=== PATIENT | male | born 1935 | race Caucasian/White ===

== ENCOUNTER 2017-07-17 12:00 | Inpatient (IN) | payer MEDICARE, BC ==
--- NOTE | 2017-07-17 13:56 | RAD ---
HISTORY: Loss of balance COMPARISONS: October 20, 2015 TECHNIQUE: Multiple contiguous axial CT scans were obtained of the head without intravenous contrast. FINDINGS: HEMORRHAGE/INFARCT: There is no hemorrhage or acute infarct. MASSES/SHIFT: There is no mass or shift. EXTRA-AXIAL SPACES: There are no extra-axial fluid collections. SULCI AND VENTRICLES: The sulci and ventricles are normal in size and position for the patient's stated age. CEREBRUM: There are no focal parenchymal abnormalities. BRAINSTEM: There are no focal parenchymal abnormalities. CEREBELLUM: There are no focal parenchymal abnormalities. VESSELS: The vessels are grossly normal. PARANASAL SINUSES: The paranasal sinuses are clear. ORBITS: The orbits are unremarkable. BONES AND SOFT TISSUE: No bone or soft tissue abnormalities are noted. OTHER: None IMPRESSION: NO ACUTE INTRACRANIAL PATHOLOGY.
[2017-07-17 14:03] LABS: Albumin 3.8 g/dL (3.2-5.2); BUN/Creatinine Ratio 14.4 (8-20); Calcium 9.2 mg/dL (8.6-10.3); EGFR African American 27.6 (>60); EGFR Non-African American 21.4 (>60); Globulin 3.6 g/dL (2-4); Magnesium 2.2 mg/dL (1.9-2.7); Potassium 4.6 mmol/L (3.5-5.0); Total Bilirubin 0.5 mg/dL (0.2-1.0); Total Protein 7.4 g/dL (6.4-8.9); Troponin I 0.01 ng/mL (<0.04)
--- NOTE | 2017-07-17 14:07 | RAD ---
Indication: Confusion, chest pain. 2 views of the chest demonstrates no mediastinal shift. Heart is of normal size and configuration. Lungs appear clear. IMPRESSION: No active cardiopulmonary disease is noted.
[2017-07-17 14:22] LABS: Hematocrit 33 % (42-52); Hemoglobin 10.7 g/dl (14.0-18.0); Mean Corpuscular HGB Conc 33 g/dl (31-36); Mean Corpuscular Hemoglobin 30 pg (27-31); Mean Corpuscular Volume 92 fL (80-94); Mean Platelet Volume 8 um3 (7.4-10.4); Red Blood Count 3.55 10^6/ul (4.0-5.4); Red Cell Distribution Width 15 % (10.5-15); TSH (Thyroid Stimulating Horm) 0.21 mcIU/mL (0.34-5.60); White Blood Count 6.7 10^3/ul (3.5-10.8)
[2017-07-17 18:09] LABS: Free T4 0.94 ng/dL (0.61-1.12)
[2017-07-17 19:49] LABS: Total T3 0.51 ng/mL (0.87-1.78)
--- NOTE | 2017-07-17 20:26 | ED ---
Francisco J Roth Benjamin, scribed for Zaki Rosario MD on 07/17/17 at 1243 . Dizziness - HPI Summary HPI Summary: 81yo male c/o dizziness for 2 days. Pt states that he felt like falling down. Per daughter, pt has been off balance, leaning towards the left. Pt is s/p total left knee replacement 3 week ago. Per daughter, pt also reported feeling like having a bad kidney. Pt has chronic kidney problems. - History Of Current Complaint Chief Complaint: EDDizziness Stated Complaint: AMS,DIZZY,WEAKNESS Time Seen by Provider: 07/17/17 12:30 Hx Obtained From: Patient, Family/Vinyl Cutter - , daughter Onset/Duration: Still Present Timing: Intermittent Episode Lasting Severity Initially: Mild Severity Currently: Mild Character: Lightheaded, Weak Aggravating Factor(s): Nothing Alleviating Factor(s): Rest Associated Signs And Symptoms: Positive: Negative - Allergies/Home Medications Allergies/Adverse Reactions: Allergies Allergy/AdvReac Type Severity Reaction Status Date / Time Iodine Allergy Severe Anaphylatic Verified 10/02/15 12:05 Shock Home Medications: Home Medications Amlodipine Besylate [Amlodipine Besylate] 10 mg PO DAILY 07/17/17 [History Confirmed 07/17/17] Donepezil Hydrochloride [Donepezil HCl] 10 mg PO DAILY 07/17/17 [History Confirmed 07/17/17] PMH/Surg Hx/FS Hx/Imm Hx Endocrine/Hematology History: Denies: Hx Diabetes, Hx Thyroid Disease Cardiovascular History: Reports: Hx Hypercholesterolemia, Hx Hypertension Denies: Hx Pacemaker/ICD, Hx Peripheral Vascular Disease History: Reports: Hx Kidney Infection, Hx Kidney Stones, Other Problems/ Disorders - CKD stage 3 Musculoskeletal History: Reports: Hx Back Problems - Disk removal Denies: Hx Arthritis Sensory History: Reports: Hx Contacts or Glasses, Hx Hearing Aid - PT Does not wear d/t tinnitus, Hx Hearing Problem Denies: Hx Cataracts, Hx Glaucoma Opthamlomology History: Reports: Hx Contacts or Glasses Denies: Hx Cataracts, Hx Glaucoma Neurological History: Reports: Hx Transient Ischemic Attacks (TIA) - 2011 Denies: Hx Headaches Psychiatric History: Denies: Hx Panic Disorder - Surgical History Surgery Procedure, Year, and Place: Back disk removal, R knee replacement, Cholecystectomy, Hernia repair. Hx Anesthesia Reactions: No Infectious Disease History: No Infectious Disease History: Denies: Traveled Outside the [place] in Last 30 Days - Family History Known Family History: Positive: Cardiac Disease, Diabetes - Social History Occupation: Retired Lives: With Family Alcohol Use: None Substance Use Type: Reports: None Smoking Status (MU): Never Smoked Tobacco Review of Systems Constitutional: Negative Eyes: Negative ENT: Negative Cardiovascular: Negative Respiratory: Negative Gastrointestinal: Negative Genitourinary: Negative Musculoskeletal: Negative Skin: Negative Neurological: Other - dizziness Psychological: Normal All Other Systems Reviewed And Are Negative: Yes Physical Exam Triage Information Reviewed: Yes Vital Signs On Initial Exam: Initial Vitals Temp Pulse Resp BP Pulse Ox 97.1 F 58 17 137/66 99 07/17/17 12:03 07/17/17 12:03 07/17/17 12:03 07/17/17 12:03 07/17/17 12:03 Vital Signs Reviewed: Yes Appearance: Positive: Well-Appearing, No Pain Distress Skin: Positive: Warm, Skin Color Reflects Adequate Perfusion Head/Face: Positive: Normal Head/Face Inspection Eyes: Positive: EOMI ENT: Positive: Normal ENT inspection Neck: Positive: Nontender Respiratory/Lung Sounds: Positive: Clear to Auscultation, Breath Sounds Present Cardiovascular: Positive: RRR. Negative: Murmur Abdomen Description: Positive: Nontender Musculoskeletal: Positive: Strength/ROM Intact Neurological: Positive: Sensory/Motor Intact, Alert, Oriented to Person Place, Time, CN Intact II-III Psychiatric: Positive: Normal - Soy Coma Scale Best Eye Response: 4 - Spontaneous Best Motor Response: 6 - Obeys Commands Best Verbal Response: 5 - Oriented Diagnostics - Vital Signs Vital Signs Temp Pulse Resp BP Pulse Ox 07/17/17 12:03 97.1 F 58 17 137/66 99 - Laboratory Result Diagrams: 07/17/17 13:25 07/17/17 13:25 Lab Statement: Any lab studies that have been ordered have been reviewed, and results considered in the medical decision making process. - Radiology CXR Xray Interpretation: No Acute Changes Radiology Interpretation Completed By: Radiologist - ED Physician reviewed the radiology report and agrees with the finding. - CT CT Brain WO CT Interpretation: No Acute Changes CT Interpretation Completed By: Radiologist - ED Physician reviewed the radiology report and agrees with the finding. - EKG 1347. Cardiac Rate: NL - 56bpm EKG Rhythm: Atrial Fibrillation EKG Interpretation: NO STEMI Re-Evaluation - Re-Evaluation First Eval Re-Evaluation Time: 15:02 Comment: Reviewed pt's lab and imaging results with the pt. Dizzy Course/Dx - Course Course Of Treatment: Reviewed pt's list of medication and allergies. Blood pressure noted. Discussed with Dr. Guerra (Hospitalist) at 1507 hour. - Diagnoses Provider Diagnoses: Dizziness, Weakness Discharge - Discharge Plan Condition: Good Disposition: ADMITTED TO [facility] documentation as recorded by the Francisco J calabrese Benjamin accurately reflects the service I personally performed and the decisions made by me, Zaki Rosario MD.
--- NOTE | 2017-07-17 20:29 | RAD ---
INDICATION: Dizziness. COMPARISON: Comparison is made with a prior carotid duplex ultrasound from May 06, 2012. TECHNIQUE: Multiple grayscale, color and Doppler tracings of the common, internal and external carotid and vertebral arteries were obtained. Stenosis estimations reflect velocity criteria that it been correlated to angiographic stenosis calculations based on the distal internal carotid diameter. RIGHT CAROTID: There is mild homogeneous plaque within the right carotid bulb and proximal internal carotid artery. The peak systolic velocity in the proximal right internal carotid artery is 66 cm/s and the maximum end-diastolic velocity is 20 cm/s. The peak systolic velocity in the distal right common carotid artery is 76 cm/s and the maximum end-diastolic velocity is 17 cm/s. The internal to common carotid artery ratio is 0.9. This would be consistent with a less than 50% stenosis. LEFT CAROTID: There is mild plaque within the left carotid bulb and proximal internal carotid artery. The peak systolic velocity in the proximal left internal carotid artery is 76 cm/s and the maximum end-diastolic velocity is 25 cm/s. The peak systolic velocity in the distal left common carotid artery is 73 cm/s and the maximum end-diastolic velocity is 18 cm/s. The internal to common carotid artery ratio is 1.0. This would be consistent with a less than 50% stenosis. VERTEBRALS: There is antegrade flow in both vertebral arteries. IMPRESSION: THERE IS MILD PLAQUE PRESENT BILATERALLY WITHIN THE PROXIMAL INTERNAL CAROTID ARTERIES. NO HEMODYNAMICALLY SIGNIFICANT STENOSIS IS SEEN. CPT II Codes: 3100F
[2017-07-17] MEDS: Meclizine TAB* 12.5 MG PO SCH (21:42)
--- NOTE | 2017-07-17 21:42 | RAD ---
INDICATION: Dizziness, possible CVA. COMPARISON: Comparison is made with a prior MRI of the brain from February 16, [address] of the brain from July 17, 2017. TECHNIQUE: Sagittal T1, axial T1, T2, susceptibility, FLAIR and diffusion weighted images were obtained. FINDINGS: The ventricles, cisterns and sulci are prominent consistent with diffuse atrophy. There are small focal areas of increased signal intensity on T2-weighted images present within the subcortical and periventricular white matter most consistent with mild chronic small vessel ischemic changes. No other focal abnormality or mass effect is seen. No areas of restricted diffusion are present. There is no evidence for infarct or hemorrhage. There is mild mucosal thickening within the ethmoid air cells. The paranasal sinuses and mastoid air cells otherwise appear clear. There appears to be a nasopharyngeal polyp measuring approximate 1.5 cm in diameter which is unchanged from the prior study. IMPRESSION: 1. NO EVIDENCE FOR ACUTE FINDING. 2. FINDINGS CONSISTENT WITH MILD CHRONIC SMALL VESSEL ISCHEMIC CHANGES. 3. NASOPHARYNGEAL POLYP, UNCHANGED.
[2017-07-17] MEDS: Acetaminophen TAB* 325 MG PO PRN (23:02)
--- NOTE | 2017-07-18 00:47 | HP ---
CC: Vesna Suresh MD* ADMISSION HISTORY AND PHYSICAL: DATE OF ADMISSION: 07/17/17 PRIMARY CARE PROVIDER: Vesna Suresh MD ADMITTING PROVIDER: CAMILLA Hendrix SUPERVISING PHYSICIAN: Terra Douglas MD* (dictated by CAMILLA Hendrix). CHIEF COMPLAINT: Dizziness. HISTORY OF PRESENT ILLNESS: This is an 81-year-old gentleman with chronic kidney disease, mild dementia, history of prior TIA, hypertension, and vertigo, who presented to the emergency department with complaints of dizziness. The patient states that his symptoms have been ongoing for the last couple of weeks and are fairly constant, seem to be reproducible by going from a sitting to standing or lying to sitting position. He has not seen a medical provider with these complaints prior to today. He is unable to provide a great description of what the sensation feels like, but states that he is very unsteady on his feet and finds himself often times knocking into ochoa and correcting himself. He feels a fullness sensation in his head and the room spinning. He denies any chest pain or shortness of breath. He believes his symptoms are worse in the morning. He denies any associated ear pain, cough, shortness of breath, fever, or other URI symptoms recently. When asked if this is similar to his history of vertigo, he says, "I believe so." Of note, the patient underwent total knee arthroplasty out of [place] about 1 month ago. He is unsure of what was utilized for DVT prophylaxis, believes he has finished the medication, and per pharmacy report, it looks like he took full strength aspirin twice daily. He denies any other changes to medication recently. He is not entirely clear on these medications but states he takes one for his memory and one for blood pressure. The patient has not tried any home remedies or [id number] medications for these symptoms. PAST MEDICAL HISTORY: 1. Stage 4 chronic kidney disease. 2. History of TIA. 3. Hypertension. 4. Hyperlipidemia. 5. Vertigo. 6. Mild dementia. PAST SURGICAL HISTORY: 1. Total knee arthroplasty. 2. Cholecystectomy. 3. Hernia repair. MEDICATIONS: Home medications (this is limited due to the patient's history and we will verify with PCP's office in the morning): 1. Amlodipine 10 mg p.o. daily. 2. Donepezil 10 mg p.o. daily. SOCIAL HISTORY: The patient lives at home with his . No history of smoking or regular alcohol consumption. REVIEW OF SYSTEMS: As listed above in the HPI. All other systems have been reviewed and considered negative. PHYSICAL EXAMINATION GENERAL: This is a pleasant elderly gentleman accompanied by his , in no acute distress. VITAL SIGNS: Initial vitals, temperature 97.1 degrees Fahrenheit, pulse is 58 beats per minute, respiratory rate 17 per minute, oxygen saturation 99% on room air, and blood pressure 137/66 mmHg. HEENT: Head is normocephalic, atraumatic. Mucous membranes are pink and moist. RESPIRATORY: Lungs are clear to auscultation without wheezes, crackles, or rhonchi. CARDIOVASCULAR: Heart has a regular rate and rhythm without murmurs, rubs, or gallops. ABDOMEN: Abdomen is soft and nontender to palpation. PSYCH: The patient is alert, appropriately oriented. NEURO: Cranial nerves II through XII appear to be intact, although he does perhaps have a mild right facial droop. His smile is asymmetric but the rest of his face appears to be intact and his is unable to state whether that is really new or different for him. He has a negative Romberg. His dizziness is reproduced with changes in position. His gait is somewhat antalgic and he is complaining of back pain, but does not appear to be terribly unsteady. SKIN: Limited exam shows no concerning rashes or lesions. LABORATORY EVALUATION: CBC shows a white blood cell count of 6700, hemoglobin of 10.7 g/dL with a normal MCV, and a platelet count of 259,000. Coags are normal with an INR of 0.92 and PTT of 33.2. D-dimer is pending at this time. Comprehensive metabolic panel shows no new findings. Sodium of 137 mmol/L, potassium 4.6, serum bicarb of 24, BUN of 41, and creatinine of 2.84, which appears to be near his baseline. Normal lactic acid at 1.0. Transaminases and total bilirubin within normal limits. Troponin is negative at 0.01. TSH slightly depressed at 0.2 with free T4, total T3 pending. IMAGIN. Chest x-ray shows no acute process. 2. CT of the brain shows no acute process. 3. EKG is difficult to see good P waves, but they do seem to be apparent and regular, so this likely a sinus rhythm without any ischemic changes. 4. Echo from September 2015 shows moderate LVH without significant valvular disease and a normal left ventricular ejection fraction. 5. MRI of the head and neck from 2013 is available for review and does not show any significant stenosis or aneurysmal changes at that time. ASSESSMENT AND PLAN: This is an 81-year-old gentleman with chronic kidney disease, history of prior transient ischemic attack, hypertension, hyperlipidemia, history of vertigo, and mild dementia who presents with complaints of dizziness and gait instability. 1. Dizziness - the patient's symptoms are nonspecific but seem to be orthostatic in nature. We will plan to obtain orthostatic vital signs. No acute findings on neurologic exam or initial imaging or labs. His renal function appears to be near baseline. He does state that his symptoms are similar to prior vertigo, but again found to be more orthostatic in nature. We will trial some use of meclizine. We will also consider PE, although he is not hypoxic or complaining of chest pain. He does have some back pain. We will order a D-dimer, and if positive, pursue a V/Q scan. His renal function precludes the use of the CT angiogram. An MRI of his brain has been ordered and pending again. CT angiogram of his head and neck will be avoided due to his renal function. He does have angiogram from 2013 of both his head and neck , which did not show any significant stenosis at that time, so it seems unlikely that he would have developed a critical stenosis over the last 3 years. He does have an echo from almost 2 years ago that was benign, but that will be repeated, most likely to look for significant changes in wall motion or valvular disease that would explain his new onset. Neurologist, Dr. Dai, has been asked to consult in this case. Could also consider Aricept is contributing to his symptoms as he states this is a relatively new medication, but the workup as described above should be completed before assuming this is the cause. 2. Stage 4 chronic kidney disease. Appears to be near baseline. We will avoid nephrotoxic agents. 3. Hypertension - the patient is moderately hypotensive. We will check orthostatic vital signs, but otherwise continue amlodipine at this time. 4. Hyperlipidemia. This is listed in his medical history but the patient does not report any statin use. We will plan to check a fasting lipid panel in the morning. 5. Mild dementia. He is well oriented and his states there has been some improvement in his mental status since initiating Aricept and this would be continued as well. 6. Code status: The patient is full code. 7. DVT prophylaxis: The patient will be started on subcu Lovenox. 8. Healthcare proxy is listed as his . 9. Disposition: The patient is being admitted to observation status with anticipated length of stay to be less than 2 midnights. CAMILLA HENDRIX [id number]/CPS #: [id number] PHILLIP
[2017-07-18] MEDS: Acetaminophen TAB* 325 MG PO PRN ×3 (03:44→19:29)
[2017-07-18 05:42] LABS: HDL Cholesterol 33.4 mg/dL
[2017-07-18] MEDS: Meclizine TAB* 12.5 MG PO SCH ×3 (06:32→21:15)
[2017-07-18] MEDS: amLODIPine TAB* 5 MG PO SCH (08:45)
[2017-07-18] MEDS ORDERED: Donepezil TAB* 5 MG PO SCH (09:00)
--- NOTE | 2017-07-18 10:34 | RAD ---
HISTORY: Dizziness, weakness, chest pain COMPARISON: Chest x-ray dated July 17, 2017 TECHNIQUE: Pulmonary ventilation/perfusion scintigraphy was performed with dynamic cine images and multiple planar images. DOSE: Ventilation: Xenon-133 12.95 millicuries, administered at 9:50 AM on July 18, 2017 Perfusion: Technetium 99m microaggregated albumin 6.5 millicuries, administered at 9:50 AM on July 18, 2017 FINDINGS: Ventilation: There is homogeneous ventilation Perfusion: There is nonsegmental small unmatched defect of the left posterior lung IMPRESSION: LOW PROBABILITY VQ SCAN
--- NOTE | 2017-07-18 11:01 | ECHO ---
Patient: HUBERT NULL [facility] Rec#: [id number] : 1935 Date: 07/18/2017 Age: 81y Height: 178 cm / 70.1 in Weight: 64.9 kg / 143.0 lbs Sex: M BSA: 1.8 Room#: [facility] Admit Date#: 07/17/2017 Type: Inpatient Referring: Clemente Benson Reading: Elijah Salas MD Lumber Stacker Driver: Jo Del Cid RN RDCS CC: Vesna Suresh Transthoracic Echocardiogram Indication: Dizziness BP: 135/62 HR: 45 Rhythm: Bradycardia Findings History: HTN, HLD, TIA, CKD, mild dementia, total left knee arthroplasty 1 month ago Technical Comments: The study quality is fair. Completed at 1010. Left Ventricle: The left ventricular chamber size is normal. Mild to moderate concentric left ventricular hypertrophy is observed. Global left ventricular wall motion and contractility are within normal limits. There is normal left ventricular systolic function.LVEF is visually estimated at 55 %. Abnormal left ventricular diastolic filling is observed, consistent with impaired relaxation. Left Atrium: The left atrium is slightly dilated. Right Ventricle: The right ventricular cavity size is normal. The right ventricular global systolic function is normal. Right Atrium: The right atrial cavity size is normal. There is evidence of an atrial septal aneurysm. Aortic Valve: The aortic valve is trileaflet. The aortic valve leaflets are mildly thickened. There is aortic annular calcification. There is trace to mild aortic regurgitation. There is no evidence of aortic stenosis. Mitral Valve: The mitral valve leaflets are mildly thickened. There is a trace of mitral regurgitation. There is no evidence of mitral stenosis. Tricuspid Valve: The tricuspid valve leaflets are normal. There is trace tricuspid regurgitation. Unable to estimate the right ventricular systolic pressure. Pulmonic Valve: The pulmonic valve appears normal. There is mild to moderate pulmonic regurgitation. There is no pulmonic stenosis. Pericardium: There is no significant pericardial effusion. Aorta: There is mild dilatation of the ascending aorta. There is no dilatation of the aortic arch. There is mild dilatation of the aortic root. Pulmonary Artery: The main pulmonary artery is not well visualized. Venous: The inferior vena cava appears normal in size. There is an approximate 50% respiratory change in the inferior vena cava dimension. Conclusions Mild to moderate concentric left ventricular hypertrophy is observed. Global left ventricular wall motion and contractility are within normal limits. Mild to moderate concentric left ventricular hypertrophy is observed. Global left ventricular wall motion and contractility are within normal limits. There is normal left ventricular systolic function.LVEF is visually estimated at 55 %. Abnormal left ventricular diastolic filling is observed, consistent with impaired relaxation. No significant valvular disease: There is trace to mild aortic regurgitation. There is a trace of mitral regurgitation. There is trace tricuspid regurgitation. No significant change compared to report of study from 10/21/2015 There is mild dilatation of the ascending aorta. Measurements Name Value Normal Range RVIDd (AP) 2D 2.9 cm (0.9 - 2.6) RVDdMajor (2D) 3.3 cm (2.2 - 4.4) RAd ISD 4CH 4.1 cm (3.4 - 4.9) RA (A4C)W 3.6 cm (2.9 - 4.6) IVSd (2D) 1.5 cm (0.6 - 1) LVPWd (2D) 1.4 cm (0.6 - 1) LVIDd (2D) 4.2 cm (3.6 - 5.4) LVIDs (2D) 2.4 cm - LV FS (2D) 43 % (25 - 45) Aortic Annulus 2.3 cm (1.4 - 2.6) Ao root diameter (2D) 3.7 cm (2.1 - 3.5) Ascending Ao 3.7 cm (2.1 - 3.4) LA dimension (AP) 2D 3.3 cm (2.3 - 3.8) LAd ISD 4CH 4 cm (2.9 - 5.3) LA ISD 4CH W 3.5 cm (2.5 - 4.5) Name Value Normal Range LA ESV SP 4CH (A/L) 35 ml - LA ESV SP 2CH (A/L) 48 ml - LA ESV BP (A/L) 41 ml - LA ESV BP (A/L) index 22.8 ml/m2 - LA ESV SP 4CH (MOD) 33 ml - LA ESV SP 2CH (MOD) 46 ml - Name Value Normal Range MV E-wave Vmax 0.44 m/sec - MV deceleration time 476 msec - MV A-wave Vmax 0.88 m/sec - MV E:A ratio 0.5 ratio - LV septal e' Vmax 0.04 m/sec - LV lateral e' Vmax 0.07 m/sec - LV E:e' septal ratio 11 ratio - LV E:e' lateral ratio 6.3 ratio - Name Value Normal Range AV Vmax 0.9 m/sec - AV VTI 22.5 cm - AV peak gradient 3.3 mmHg - AV mean gradient 2.2 mmHg - LVOT Vmax 0.67 m/sec - LVOT VTI 15.9 cm - LVOT peak gradient 1.8 mmHg - LVOT mean gradient 1.1 mmHg - DENISE Vmax 0.53 m/sec - Name Value Normal Range IVC diameter 1.8 cm - Name Value Normal Range PV Vmax 0.78 m/sec -
[2017-07-18 14:33] LABS: Urine Bacteria Absent (Absent); Urine Bilirubin Negative (Negative); Urine Glucose Negative (Negative); Urine Nitrite Negative (Negative)
[2017-07-18] MEDS: Aspirin TAB* 325 MG PO SCH (16:15)
[2017-07-18 17:13] LABS: C Reactive Protein 8.46 mg/L (< 5.00)
--- NOTE | 2017-07-18 17:30 | PN ---
Subjective Date of Service: 07/18/17 Interval History: Mr. Last initially stated he was feeling much better when I saw him this morning. He confirmed that he had dizziness consistent with his history of vertigo earlier but that it had resolved. He was tolerating oral intake well. However, later that afternoon he reported feeling weak and exhausted. Neurology noted that he was very unsteady on his feet. Mr. Last confirms that he has lost about 40 lbs over the past couple of months. He has been under a lot of stress related to caring for his who was cancer and feels that he is not taking care of himself. He confirms that he often misses meals. He has a recent excision of suspicious nevi on his face and on his chest by dermatology team outpatient. 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 Objective Active Medications: Acetaminophen (Tylenol Tab*) 650 mg PO Q6H PRN Amlodipine Besylate (Norvasc Tab*) 10 mg PO DAILY [facility] Aspirin (Aspirin Tab*) 325 mg PO DAILY [facility] Meclizine HCl (Antivert Tab*) 25 mg PO Q8HR [facility] Vital Signs Vital Signs: Temp Pulse Resp BP Pulse Ox 97.9 F 64 16 111/50 100 07/18/17 16:01 07/18/17 16:01 07/18/17 16:01 07/18/17 16:01 07/18/17 16:01 Oxygen Devices in Use Now: None Appearance: Male sitting up in bed in NAD Eyes: No Scleral Icterus Ears/Nose/Mouth/Throat: Mucous Membranes Moist Neck: Trachea Midline Respiratory: Symmetrical Chest Expansion and Respiratory Effort, Clear to Auscultation Cardiovascular: NL Sounds; No Murmurs; No JVD, No Edema Abdominal: NL Sounds; No Tenderness; No Distention Extremities: No Edema Skin: - - 1 cm incision to right check with stitch Neurological: Alert and Oriented x 3, NL Muscle Strength and Tone Nutrition: Taking PO's Result Diagrams: 07/17/17 13:25 07/17/17 13:25 Assess/Plan/Problems-Billing Assessment: Mr. Last is an 81 yo male with a PMH of TIA, HTN, HLD, and CKD Stage IV who was admitted on 07/17/17 with concern for dizziness and not feeling well now describing recent 40lb weight loss with new skin biopsy showing malignant melanoma in situ. - Patient Problems (1) Dizziness Comment: - Resolved. ? if BPPV (patient confirms history of vertigo). ? if related to underlying process such as cancer given his weight loss and new diagnosis of malignant melanoma. Patient also describes feeling unsteady on his feet and this gait abnormality is confirmed by Dr. Dimas today as well. - MRI brain negative. Echo without significant wall motion or valvular abnormalities. No evidence of infection. V/Q scan negative. No evidence of infection or autoimmune process with essentially normal CRP - Appreciate neurology consult, Dr. Dimas questions if his constellation of symptoms could be related to donepezil (discontinued) or myeloma (SPEP, UPEP ordered) (2) Malignant melanoma Comment: - Skin biopsy outpatient, patient unaware of pathology results. Explained to him today. - Plan for oncology consult in AM. - Could explain patient's significant weight loss, though biopsy is described to be in situ. (3) CKD (chronic kidney disease) Comment: - Stage 4. - Creatinine rising slowly since 2012. - Avoid nephrotoxins, keep well hydrated, control hypertension. (4) HTN (hypertension) Comment: - BP well controlled, continue amlodipine. (5) DVT prophylaxis Comment: - SQ heparin. (6) Full code status Status and Disposition: Convert from OBV to inpatient given need for additional night in the hospital for further workup. Anticipate discharge to home when medically stable.
--- NOTE | 2017-07-18 18:29 | CONS ---
NEUROLOGY CONSULTATION: DATE OF CONSULT: 07/18/17 LOCATION: Inpatient, Room 445. REFERRING PROVIDER: CAMILLA Cuevas. PRIMARY CARE PROVIDER: Vesna Suresh MD. CHIEF COMPLAINT: Dizziness. HISTORY OF PRESENT ILLNESS: Tyree Last is an 81-year-old man who was admitted yesterday with dizziness. He carries a diagnosis of mild dementia and is not a very good historian, but says for a few days he has been feeling dizzy. He feels unsteady on his feet. If he sits down, he feels better. He does not feel dizzy when he is lying down. He does report a sense of possible impending loss of consciousness and some nausea, but no sweats. He has not fallen, but he has to hold on to ochoa at times. He has a history of vertigo in the past and he feels somewhat like that. He has had orthostatic vitals checked since he has been here and those have been unremarkable. He had an MRI of his brain, which reveals chronic ischemic changes, but is otherwise unremarkable as well. He has not noticed any double vision, change in vision, or numbness or weakness of his extremities. He does not have any headache. Of note, he says he has lost over 20 pounds in the last few weeks for unclear causes. He does not have any diarrhea or abdominal pain and he has not had any vomiting. PAST MEDICAL HISTORY: Notable for: 1. Stage 4 chronic renal disease. 2. Hypertension. 3. Hyperlipidemia. 4. Dementia. 5. Recent knee arthroplasty. 6. Prior knee replacement. 7. Cholecystectomy. MEDICATIONS AT HOME: Consist of: 1. Amlodipine 10 mg p.o. daily. 2. Donepezil 10 mg p.o. daily. REVIEW OF SYSTEMS: Notable for left paralumbar pain radiating into the left buttock. He does not have any numbness or pain in his feet. No shortness of breath or chest pain. Weight loss as noted above. He has not noticed any fevers, sweats, or chills. No history of head trauma or seizures. PHYSICAL EXAM: He is a thin elderly gentleman, looks well hydrated. Most recent temperature 98.2, blood pressure 125/65, heart rate is about 60 and seems regular. Heart is in a regular rate and rhythm without murmurs. Carotid pulses are symmetrical and there are no cervical bruits. He has a small right surgical incision near his right maxilla with a couple of stitches in it from a recent skin biopsy. Head is otherwise atraumatic. Neck is supple. There is tenderness to palpation in the left paralumbar region, but no masses are felt. Neurological Exam: Pupils are small at about 2.5 mm, reacting to light to 2 mm. Funduscopic exam reveals sharp discs bilaterally and arterial tortuosity and silver wiring. No hemorrhages noted. Eye movements are normal. There is no ptosis. Visual zayas are full to confrontation. There is mild weakness of right lower facial musculature. Facial sensation is intact to light touch. Palate and tongue appear normal and speech is clear. He is hard of hearing bilaterally. Neck strength is intact. Motor exam reveals no rigidity or spasticity. He has good strength proximally and distally in upper and lower extremities, although there is pain with touching about the left knee, so that was not forced. Sensory exam is notable for absent vibratory sense in the feet, but intact proprioception and light touch in the limbs. There is mild myoclonus in the outstretched hands. There is no action tremor or dysmetria on [id number] maneuver. He is not able to do a [id number]-mt-[id number] maneuver because of the knee problems. Gait is wide-based and unsteady. He is alert and oriented, but has a poor recent memory. Language is generally fluent. DIAGNOSTIC STUDIES/LAB DATA: Includes a CAT scan of the brain, which I reviewed and is interpreted as normal. MRI of the brain likewise reviewed and reveals subcortical high signal and flare in T2 consistent with chronic ischemic changes. There is also an area of darkness on the susceptibility images suggestive of hemosiderin deposition. It is not commented by the radiologist, however. Other laboratory studies notable for hemoglobin of 10.7, which is a decrease from his last hemoglobin in September 2016 of 12.7. CBC is otherwise unremarkable. Chemistries notable for a creatinine of 2.84 with a BUN of 41, this is the highest creatinine he has had and the last one in the record is 2.74 on 10/14/16. TSH is low at 0.21 and total T3 is also low at 0.51. IMPRESSION AND PLAN: Mr. Last presents with fairly nonspecific dizziness. His symptoms sound more like a lightheadedness than actual vertigo. There is no evidence of acute cerebrovascular event. He has lost a lot of weight and I am not sure how to interpret his thyroid function abnormalities with both the low T3 and a low TSH. I am also concerned about his anemia and renal dysfunction and weight loss in terms of possibility of myeloma. I would recommend additional laboratory studies to include a sedimentation rate , CRP, urine and serum electrophoresis, also anti-thyroid antibodies. I would also recommend stopping donepezil as it can cause heart block as well as anorexia and other intestinal symptoms. It may be causing anorexia with weight loss, but again I think additional labs need to be done. I should also note his EKG does not clearly show P-waves and I think that is another reason to at least hold the donepezil for now. I discussed my concerns with Clemente Benson. [id number]/[facility] #: [id number] PHILLIP
[2017-07-18] MEDS: Heparin VIAL(*) 5000 UNITS/ML VIAL (FIVE THOUSAND) SUBCUT SCH (21:15)
[2017-07-19] MEDS: Meclizine TAB* 12.5 MG PO SCH ×3 (05:29→22:20)
[2017-07-19] MEDS: Heparin VIAL(*) 5000 UNITS/ML VIAL (FIVE THOUSAND) SUBCUT SCH ×3 (05:29→22:20)
[2017-07-19] MEDS: Acetaminophen TAB* 325 MG PO PRN (06:49)
[2017-07-19] MEDS: Aspirin TAB* 325 MG PO SCH (07:47)
[2017-07-19] MEDS: amLODIPine TAB* 5 MG PO SCH (07:47)
[2017-07-19 09:00] LABS: Ferritin 222.3 ng/mL (24-336)
[2017-07-19] MEDS ORDERED: Influenza VAC *QUAD* 2017-18* 0.5 ML SYRINGE IM ONE (09:00)
[2017-07-19 09:04] LABS: Folate 2.8 ng/mL (>3.99)
[2017-07-19] MEDS ORDERED: amLODIPine TAB* 5 MG PO SCH (12:16)
[2017-07-19] MEDS ORDERED: oxyCODONE TAB* 5 MG TAB PO PRN (12:16)
[2017-07-19 13:08] LABS: Prolactin 5.6 ng/mL (1.0-20.0)
--- NOTE | 2017-07-19 14:22 | RAD ---
INDICATION: Weight loss, loss of appetite, pain left lower rib. COMPARISON: Comparison is made with a prior CT of the abdomen and pelvis from October 06, 2011. TECHNIQUE: A CT scan of the chest, abdomen and pelvis was performed without intravenous or oral contrast. Contiguous axial sections were obtained from the lung apices through the symphysis pubis. Images were reconstructed in the coronal and sagittal planes. FINDINGS: The lungs are clear. No pleural effusion is seen. No significant enlarged mediastinal or hilar lymph nodes are seen. The heart is within normal limits in size. No pericardial effusion is present. There are coronary artery calcifications present. The thoracic aorta is normal in caliber. There is mild calcific plaque present. The liver and spleen are normal in size without significant focal abnormality on this noncontrast study. The patient is status post cholecystectomy. The pancreas appears within normal limits in size. No ductal distention is seen. The adrenal glands appear to be within normal limits. The kidneys appear small in size with multiple hypodense lesions most consistent with cysts on this noncontrast study. No renal calculi are seen. No hydronephrosis is noted. The aorta is normal in caliber and there is moderate calcific plaque present. No significant enlarged retroperitoneal lymph nodes are seen. The stomach, small and large bowel appear nondistended. There is moderate descending and sigmoid diverticulosis. There is no evidence for diverticulitis or colitis. There is a small periumbilical hernia containing fat. No free intraperitoneal air or fluid is seen. No significant focal osseous abnormality is seen. IMPRESSION: 1. NO EVIDENCE FOR ACUTE FINDING. 2. NO EVIDENCE FOR METASTATIC DISEASE.
--- NOTE | 2017-07-19 18:08 | PN ---
Subjective Date of Service: 07/19/17 Interval History: No more dizzy spells. No c/o. Objective Active Medications: Amlodipine Besylate (Norvasc Tab*) 5 mg PO DAILY [facility] Aspirin (Aspirin Tab*) 325 mg PO DAILY [facility] Last Admin: 07/19/17 07:47 Dose: 325 mg Heparin Sodium (Porcine) (Heparin Vial(*)) 5,000 units SUBCUT Q8HR [facility] Last Admin: 07/19/17 13:12 Dose: 5,000 units Meclizine HCl (Antivert Tab*) 25 mg PO Q8HR [facility] Last Admin: 07/19/17 13:12 Dose: 25 mg Oxycodone HCl (Roxycodone Tab*) 5 mg PO Q4H PRN PRN Reason: PAIN Last Admin: 07/19/17 12:44 Dose: 5 mg Vital Signs 07/18/17 07/18/17 07/19/17 19:51 20:00 00:19 Temperature 98.3 F 98.2 F Pulse Rate 57 56 Respiratory 16 18 16 Rate Blood Pressure 120/62 132/59 (mmHg) O2 Sat by Pulse 99 97 Oximetry 07/19/17 07/19/17 07/19/17 04:10 06:35 07:14 Temperature 97.5 F 97.9 F Pulse Rate 51 67 Respiratory 16 18 16 Rate Blood Pressure 153/71 121/60 (mmHg) O2 Sat by Pulse 100 99 Oximetry 07/19/17 07/19/17 07/19/17 11:20 12:44 14:44 Temperature 98.4 F Pulse Rate 62 Respiratory 18 20 16 Rate Blood Pressure 123/61 (mmHg) O2 Sat by Pulse 99 Oximetry 07/19/17 15:24 Temperature 97.6 F Pulse Rate 72 Respiratory 16 Rate Blood Pressure 133/72 (mmHg) O2 Sat by Pulse 100 Oximetry Oxygen Devices in Use Now: None Appearance: Alert, sitting up in bed. In good spirits. Looks comfortable. Eyes: No Scleral Icterus Extremities: No Edema, No Clubbing, Cyanosis, - Skin: No Rash or Ulcers, No Nodules or Sclerosis, - Neurological: Alert and Oriented x 3, NL Sensation Result Diagrams: 07/17/17 13:25 07/17/17 13:25 Microbiology and Other Data: Microbiology 07/19/17 10:06 Stool Occult Blood ([facility]MAN) - Final Stool Assess/Plan/Problems-Billing Assessment: Mr. Last is an 81 yo male with a PMH of TIA, HTN, HLD, and CKD Stage IV who was admitted on 07/17/17 with concern for dizziness and not feeling well now describing recent 40lb weight loss with new skin biopsy showing malignant melanoma in situ. - Patient Problems (1) Malignant melanoma Current Visit: Yes Status: Acute Code(s): C43.9 - MALIGNANT MELANOMA OF SKIN , UNSPECIFIED SNOMED Code(s): 052342053 Comment: in situ. I will discuss with the oncologist. (2) CKD (chronic kidney disease) stage 3, GFR 30-59 ml/min Current Visit: No Status: Acute Code(s): N18.3 - CHRONIC KIDNEY DISEASE, STAGE 3 (MODERATE) SNOMED Code(s): 485234927 Comment: ? slowly progressive. BMP 07/20. (3) HTN (hypertension) Current Visit: No Status: Acute Code(s): I10 - ESSENTIAL (PRIMARY) HYPERTENSION SNOMED Code(s): 95720687 Comment: - BP well controlled, continue amlodipine. Status and Disposition: Convert from OBV to inpatient given need for additional night in the hospital for further workup. Anticipate discharge to home when medically stable.
--- NOTE | 2017-07-20 00:42 | CONS ---
MEDICAL ONCOLOGY/HEMATOLOGY CONSULTATION NOTE: DATE OF CONSULT: 07/19/17 REASON FOR CONSULT: Anemia, weight loss, and recent diagnosis of melanoma in situ. HISTORY OF PRESENT ILLNESS: Mr. Last is an 81-year-old male who is known to our office as his is a longstanding patient here. He has a longstanding history of chronic kidney disease for which he follows with Dr. Malave. Also, longstanding history of anemia. He presented to the hospital at this time with episodes of dizziness and lightheadedness, which has been going on for a period of several days to may be a week. It worsens with change in position. At times, he describes this as being vertigo and at times denies of being vertiginous. He was seen in consultation on 07/[address] Dai of Neurology. It was felt at that time this was more lightheadedness than true vertigo. There was no evidence for an acute cerebrovascular event. Imaging of the brain includes a brain MRI on 07/17/17 that was done without contrast given his renal failure. There was no evidence for any acute findings. There was some mild chronic small vessel ischemic changes noted. Laboratory studies are significant as follows: H and H of 33 and 10.7. Hemoglobin has been low since at least 2013, running in the 12 to 13 range in 2013 and 2014 then being 10.9 in July 2015, 12.28 September 2016, and 10.7 now. It should be noted that the patient did undergo a total knee replacement 5 weeks ago. Associated with this is a normal white count, normal platelet count, and normal MCV along with potentially normal differential. There were no significant abnormalities noted on his peripheral smear. Other laboratory studies of note include sed rate of 30, CRP of 8.46. Iron saturation is 15%. Normal LFTs. B12 level is 328. Folic acid 2.80. Thyroid function includes TSH of 0.21 with a free T4 of 0.94 and a total T3 of 0.51. Slightly confusing given low TSH and also low T3. Renal function has been abnormal for multiple years with a creatinine of 2 to [address] all the way back to 2011 creatinine recently to 2.84 versus his baseline over the past couple of years of approximately 2.5. The patient reports approximately 40-pound weight loss and that he initially said was a one month period, which was clarified by his and his daughter to be 485 pounds down to 140 pounds over the past 4 to 5 months. Associated with this, he but he does not have nausea, vomiting, or any early satiety. He does complain of pain in his lower back, which he rates as a 5-6/10, especially when he lies on the left side, occurring in the past 2 to 3 weeks, which is helped somewhat but not completely by Tylenol. PAST MEDICAL HISTORY: Ongoing anemia, mild dementia, hyperlipidemia, hypertension, history of TIA, chronic kidney disease, episode of vertigo approximately 2 years ago, status post total knee replacement, status post cholecystectomy, status post inguinal hernia repair. MEDICATIONS: At home include amlodipine and donepezil 10 mg daily each. SOCIAL HISTORY: The patient lives with his . Denies any significant alcohol or tobacco. He is a retired nurse, having retired in 1994. REVIEW OF SYSTEMS: As discussed above. No shortness of breath or chest pain. No palpitations. No recent fevers, sweats, chills, cough, sore throat, or other signs of infection. No significant change in bowel or bladder habits. Review of systems is otherwise negative except as discussed in the above history of present illness. PHYSICAL EXAM: Elderly male, who appears his stated age, in no acute distress, quite thin. Vital Signs: Blood pressure 123/61, pulse 62, afebrile. Orthostatic signs obtained just prior to this visit revealed a significant increase in his pulse rate from 62 to 86 on standing without significant drop in blood pressure going from 123/61 to 110/69. HEENT: PERRL, EOMI. No erythema or exudate. No palpable cervical, supraclavicular, or axillary adenopathy. Lungs: Clear. Heart: Regular rate and rhythm without murmurs, rubs or gallops. Abdomen: Somewhat scaphoid without masses, organomegaly, or tenderness. Normoactive bowel sounds. Back: No CVA or spinal tenderness. He is tender over right lower lateral rib and less so over the accompanying upper right pelvis. Extremities: No clubbing, cyanosis, or edema. Neurologic Exam: Negative Romberg. Motor is reasonably intact. No significant cranial nerve findings. Right cheek with several sutures to be in place, has had a recent melanoma in situ resection. IMPRESSION: An 81-year-old male with following four issues, recently excised melanoma in situ, chronic anemia with chronic renal failure, weight loss, dizziness. 1. In regards to melanoma in situ, he will require television production assistant local excision given the fact that the margins were quite close and he actually has 1+ margin. Given this melanoma in situ, no further therapy is necessary unless invasive melanoma is found on the re-excision. 2. Chronic anemia. This most likely relates to his underlying renal insufficiency. His anemia is slightly worse recently, which is also likely related to his total knee replacement 4 to 5 weeks ago. Given the fact that he is having symptoms of severe weight loss, further workup is to ensue. This will include a CT scan of the chest, abdomen, and pelvis to look for any occult malignancy. Serum protein electrophoresis with light chain and beta-2 microglobulin to look for potential multiple myeloma. If this workup is negative, I do not believe at the present time that there is a role for a bone marrow biopsy. 3. Weight loss. There is no obvious etiology for this at the present time, certainly a CT scan as discussed above will be appropriate given severity of the weight loss in such a short period of time. 4. Dizziness. He has already had an essentially negative MRI of the brain. He has had ongoing neurology consultation. [id number]/[facility] #: [id number] PHILLIP
[2017-07-20 05:08] LABS: BUN/Creatinine Ratio 15.9 (8-20); Calcium 8.5 mg/dL (8.6-10.3); EGFR African American 26.9 (>60); EGFR Non-African American 20.9 (>60); Potassium 4.2 mmol/L (3.5-5.0)
[2017-07-20] MEDS: Meclizine TAB* 12.5 MG PO SCH ×2 (06:27→13:34)
[2017-07-20] MEDS: Heparin VIAL(*) 5000 UNITS/ML VIAL (FIVE THOUSAND) SUBCUT SCH ×2 (06:27→13:34)
[2017-07-20 08:22] VITALS: BP 127/61
[2017-07-20] MEDS: Aspirin TAB* 325 MG PO SCH (08:26)
--- NOTE | 2017-07-20 12:25 | PN ---
Progress Note - Progress Note Date of Service: 07/20/17 Note: Time spent on discharge 45 minutes.
[2017-07-20 13:39] LABS: Thyroglobulin Antibody <1.8 IU/mL (<4.0)
[2017-07-20 16:52] LABS: Albumin 55 %; Gamma Globulin 15 %
--- NOTE | 2017-07-20 23:41 | DS ---
CC: Dr. Vesna Suresh; Dr. Kaur* DISCHARGE SUMMARY: DATE OF ADMISSION: 07/18/17 DATE OF DISCHARGE: 07/20/17 HOSPITAL COURSE: This 81-year-old man presented with dizziness. He stated that he had had this problem for about 2 weeks and generally seemed to be when he stood up. I note he had one total knee arthroplasty about a month before at [facility]. The rest of the history is detailed in the admission note. The patient was seen in consultation by Dr. Dai. Dr. Dai recommended antithyroid antibody, sedimentation rate, CRP, serum electrophoresis. He felt that the patient's symptoms were rather nonspecific and seemed to be more lightheadedness than vertigo and therefore not of neurologic etiology. The patient was seen in consultation by Dr. Kaur because of his melanoma in situ, anemia, and weight loss. The patient had a CT scan of the abdomen and pelvis, which did not show any evidence of malignancy. Test for serum protein electrophoresis with light chain and beta-2 microglobulin were sent out and are pending. I reduced his amlodipine dose from 10 mg to 5 mg. I think his symptoms improved in the hospital possibly due to the medication change. DISCHARGE DIAGNOSES: 1. Melanoma in situ. 2. Chronic kidney disease. 3. Hypertension. 4. Dizziness. DISCHARGE MEDICATIONS: 1. Amlodipine 5 mg daily. 2. Aspirin 81 mg daily. [id number]/[facility] #: [id number] MTDD
[2017-07-21 10:57] LABS: Erythropoietin 15.6 mIU/mL (2.6 - 18.5)
[2017-07-21 11:12] LABS: Albumin 2.9 g/dL (3.4-4.7); Gamma Globulin 1.3 g/dL (0.6-1.6); Total Protein(PEP) 6.1 g/dL (6.3 - 7.9)
[2017-07-21 11:47] LABS: Kappa Free Light Chain 6.01 mg/dL; Kappa/Lambda Free Light Chain 1.56
== END 2017-07-20 14:35 | disposition home health service (06) | DRG 149 ==
LOC: ED 12:00 → MEDTELE 15:14 → OBSVTOIN 07-18 17:40 → MEDTELE 07-19 21:40
PROVIDERS: ADMIT Internal Medicine; ATTEND Internal Medicine
PROC: 3E0234Z Introduction of Serum, Toxoid and Vaccine into Muscle, Percutaneous Approach (ICD-10-PCS; principal; 2017-07-19)
DX: R42 Dizziness and giddiness (principal); N18.4 Chronic kidney disease, stage 4 (severe); D03.9 Melanoma in situ, unspecified; F03.90 Unspecified dementia, unspecified severity, without behavioral disturbance, psychotic disturbance, mood disturbance, and anxiety; I12.9 Hypertensive chronic kidney disease with stage 1 through stage 4 chronic kidney disease, or unspecified chronic kidney disease; D64.9 Anemia, unspecified; E78.5 Hyperlipidemia, unspecified; Z96.651 Presence of right artificial knee joint; R40.2362 Coma scale, best motor response, obeys commands, at arrival to emergency department; R40.2142 Coma scale, eyes open, spontaneous, at arrival to emergency department; R40.2252 Coma scale, best verbal response, oriented, at arrival to emergency department; T46.1X5A Adverse effect of calcium-channel blockers, initial encounter; Z86.73 Personal history of transient ischemic attack (TIA), and cerebral infarction without residual deficits; Z90.49 Acquired absence of other specified parts of digestive tract; Z91.041 Radiographic dye allergy status; Z87.442 Personal history of urinary calculi; Z97.4 Presence of external hearing-aid; Z82.49 Family history of ischemic heart disease and other diseases of the circulatory system; Z83.3 Family history of diabetes mellitus; Z23 Encounter for immunization; Z79.82 Long term (current) use of aspirin; Y92.9 Unspecified place or not applicable
CPT/HCPCS: 36415; 70450; 70551; 71020; 71250; 74176; 78582; 80048; 80053; 80061; 81003; 81015; 82272; 82533; 82607; 82668; 82728; 82746; 83540; 83550; 83605; 83735; 83883; 84146; 84155; 84156; 84165; 84166; 84439; 84443; 84479; 84484; 85025; 85379; 85610; 85652; 85730; 86140; 86376; 86800; 90686; 93005; 93306; 93880; 99231; A9270-GY; A9540; A9558; G0378; J1644

== ENCOUNTER 2018-05-16 07:02 | Day surgery (SDC) | payer MEDICARE, BC ==
[~2018-05-16 07:02] MED LIST: Acetaminophen TAB* 325 MG PO PRN; Buffered Lidocaine 0.9% SYRIN* 5 ML/SYR SYRINGE INTRADERM ONE
[2018-05-16] MEDS ORDERED: BSS OPTH.SOL* BTL ONE (07:36)
[2018-05-16] MEDS ORDERED: Midazolam* 1 MG/ML 2 ML VIAL (2 MG) ONE (08:45)
[2018-05-16 09:53] VITALS: BP 162/75
[2018-05-16] MEDS ORDERED: Lidocaine 1%* 5 ML VIAL ONE (15:09)
[2018-05-16] MEDS ORDERED: acetaZOLAMIDE TAB* 250 MG ONE (15:09)
[2018-05-16] MEDS ORDERED: Proparacaine 0.5% OPHTH.SOL* 15 ML BTL ONE (15:09)
[2018-05-16] MEDS ORDERED: Povidone Iodine 5% OPTH* 30 ML BTL ONE (15:09)
[2018-05-16] MEDS ORDERED: Cyclopentolate 1% OPTH.SOL* 2 ML BTL ONE (15:09)
[2018-05-16] MEDS ORDERED: Neomycin/Polymy/Dex OPTH.SUSP* MAXITROL 0.1% 5 ML ONE (15:09)
[2018-05-16] MEDS ORDERED: Lidocaine 2% EPI 1:200000 MPF*10-20 ML VIAL ONE (15:09)
[2018-05-16] MEDS ORDERED: Ketorolac 0.5% OPHTH (NF) 0.5 % 5 ML BTL ONE (15:09)
[2018-05-16] MEDS ORDERED: Phenylephrine 2.5% OPTH.SOL* 2 ML BTL ONE (15:09)
--- NOTE | 2018-05-17 03:34 | OP ---
DATE OF OPERATION: 05/16/18 [facility] DATE OF : 33 SURGEON: Obed Cadet MD PREOPERATIVE DIAGNOSIS: Cataract, left eye. POSTOPERATIVE DIAGNOSIS: Cataract, left eye. OPERATIVE PROCEDURE: Extracapsular cataract extraction with intraocular lens implant, left eye. DESCRIPTION OF PROCEDURE: The patient was brought to the operating room after being given 1/2% Alcaine with epinephrine drops in the preoperative area. The eye was prepped and draped in the usual sterile fashion. Sterile drape and eyelid speculum were placed. Again, topical 1/2% Alcaine with epinephrine was given. A paracentesis incision was made at the 3 o'clock position with the No.75 blade. Clear cornea incision 2.2 x 2.2-mm was created at the 6 o'clock position starting at the anterior limbus using the 2.2-mm keratome. The anterior chamber was irrigated with 0.4 mL of 1% non-preservative intracameral lidocaine and filled with DisCoVisc. A capsulorrhexis was completed using the cystotome and the Utrata forceps. Hydrodissection was performed with balanced salt solution. The lens nucleus was removed with the Phacoemulsification handpiece without incident. Cortex was removed with the irrigation-aspiration handpiece. The capsular bag was re-inflated using DisCoVisc and an [id number] 21.5 implant was inserted with the shooter, oriented to the 179 degree meridian. The irrigation-aspiration handpiece was used to remove all residual DisCoVisc. The eye was refilled with balanced salt solution and the wound checked and found to be watertight. Topical Maxitrol drops were given. Horizontal reference driver were made with the patient in a seated position in the preoperative area. [id number]/[facility] #: [id number] MTDD
== END 2018-05-16 09:55 | disposition home or self-care (01) ==
LOC: OREAST 07:02
PROVIDERS: ATTEND Specialist
DX: H25.812 Combined forms of age-related cataract, left eye (principal); H35.033 Hypertensive retinopathy, bilateral; Z85.828 Personal history of other malignant neoplasm of skin; I48.91 Unspecified atrial fibrillation; N18.4 Chronic kidney disease, stage 4 (severe); I12.9 Hypertensive chronic kidney disease with stage 1 through stage 4 chronic kidney disease, or unspecified chronic kidney disease
CPT/HCPCS: A9270-GY; J2250; V2787

== ENCOUNTER → 2018-05-23 06:33 | Day surgery (SDC) | payer MEDICARE, BC ==
[~2018-05-23 06:33] MED LIST changes: +Cyclopentolate 1% OPTH.SOL* 2 ML BTL ONE; +Ketorolac 0.5% OPHTH (NF) 0.5 % 5 ML BTL ONE; +Lidocaine 1%* 5 ML VIAL ONE; +Lidocaine 2% EPI 1:200000 MPF*10-20 ML VIAL ONE; +Midazolam* 1 MG/ML 2 ML VIAL (2 MG) ONE; +Neomycin/Polymy/Dex OPTH.SUSP* MAXITROL 0.1% 5 ML ONE; +Phenylephrine 2.5% OPTH.SOL* 2 ML BTL ONE; +Povidone Iodine 5% OPTH* 30 ML BTL ONE; +Proparacaine 0.5% OPHTH.SOL* 15 ML BTL ONE; +acetaZOLAMIDE TAB* 250 MG ONE
[2018-05-23 08:46] VITALS: BP 134/68
--- NOTE | 2018-05-24 00:32 | OP ---
DATE OF OPERATION: 05/23/18 [facility] DATE OF : 33 SURGEON: Obed Cadet M.D. PREOPERATIVE DIAGNOSIS: Cataract, right eye. POSTOPERATIVE DIAGNOSIS: Cataract, right eye. OPERATIVE PROCEDURE: Extracapsular cataract extraction with intraocular lens implant right eye. DESCRIPTION OF PROCEDURE: The patient was brought to the operating room after being given 1/2% Alcaine with epinephrine drops in the preoperative area. The eye was prepped and draped in the usual sterile fashion. Sterile drape and eyelid speculum were placed. Again, topical 1/2% Alcaine with epinephrine was given. A paracentesis incision was made at the 9 o'clock position with the No.75 blade. Clear cornea incision 2.2 x 2.2-mm was created at the 12 o'clock position starting at the anterior limbus using the 2.2-mm keratome. The anterior chamber was irrigated with 0.4 mL of 1% non-preservative intracameral lidocaine and filled with DisCoVisc. A capsulorrhexis was completed using the cystotome and the Utrata forceps. Hydrodissection was performed with balanced salt solution. The lens nucleus was removed with the Phacoemulsification handpiece without incident. Cortex was removed with the irrigation-aspiration handpiece. The capsular bag was re-inflated using DisCoVisc and an [id number] 21.5 implant was inserted with the shooter, oriented to 150-degree meridian. Horizontal reference driver made with the patient in seated position in the preoperative area. The irrigation-aspiration handpiece was used to remove all residual DisCoVisc. The eye was refilled with balanced salt solution and the wound checked and found to be watertight. Topical Maxitrol drops were given. [id number] #: [id number] MTDD
== END | disposition home or self-care (01) ==
LOC: OREAST 06:33
PROVIDERS: ATTEND Specialist
DX: H25.811 Combined forms of age-related cataract, right eye (principal); H35.033 Hypertensive retinopathy, bilateral; I10 Essential (primary) hypertension; G31.84 Mild cognitive impairment of uncertain or unknown etiology; N18.9 Chronic kidney disease, unspecified; Z85.820 Personal history of malignant melanoma of skin; R42 Dizziness and giddiness; Z86.73 Personal history of transient ischemic attack (TIA), and cerebral infarction without residual deficits
CPT/HCPCS: A9270-GY; J2250; V2787